=== PATIENT | male | born 1990 | race Caucasian/White ===

== ENCOUNTER 2016-11-15 09:58 | Emergency (ER) | payer MEDICAID ==
[2016-11-15 10:03] VITALS: BP 155/91; PULSE 92; RESP 16; TEMP 98.1; O2SAT 98
--- NOTE | 2016-11-15 11:22 | EDPHY ---
H & P Time Seen by Provider: 11/15/16 10:52 HPI/ROS: CHIEF COMPLAINT: The possible infection on facial piercing HISTORY OF PRESENT ILLNESS: Patient is a 26-year-old male who presents emergency department with some redness surrounding the left facial piercing. Patient has mild discomfort at the location. Mild redness. No fevers or chills. No recent trauma to that location. No visual change. No eye pain. REVIEW OF SYSTEMS: My complete review of systems is negative except as mentioned in the HPI. Past Medical/Surgical History: Reports chronic pain. No other medical problems Smoking Status: Current every day smoker Physical Exam: Vitals noted General Appearance: Alert and no distress. Head/faace: Patient has a piercing/plug just lateral to the left lateral canthus. There is minimal surrounding erythema. There is no fluctuance. His eye appears normal. No proptosis. PERRLA. Respiratory: No respiratory distress. Cardiac: regular rate and rhythm. Extremities: Full range of motion, normal appearing. Skin: No rashes or lesions. Neuro: Alert. Normal mood and affect. Constitutional: Initial Vital Signs Temperature (C) 36.7 C 11/15/16 10:00 Heart Rate 92 11/15/16 10:00 Respiratory Rate 16 11/15/16 10:00 Blood Pressure 155/91 H 11/15/16 10:00 O2 Sat (%) 98 11/15/16 10:00 O2 Delivery Mode Room Air Allergies/Adverse Reactions: No Known Allergies Allergy (Unverified 11/15/16 10:03) Home Medications: Medication Instructions Recorded GABAPENTIN 400 mg PO 11/15/16 Medical Decision Making ED Course/Re-evaluation: In the emergency department I discussed possible etiologies with the patient. I discussed the need to have his piercing removed. He would prefer to do this at the location where he had the piercing placed. I discussed the potential for follow-up with Dr. Woods from surgery. I discussed the plan for treatment with Keflex. He agreed with the plan. I went to recheck on the patient prior to discharge. He left the room. The patient stated he did not want to wait for his discharge paperwork or his prescription. Differential Diagnosis: My differential includes but is not limited to foreign body, abscess, cellulitis , inflammation, orbital infection Departure - Departure Disposition: Home, Routine, Self-Care Clinical Impression: Piercing Cellulitis Qualifiers: Site of cellulitis: face Qualified Code(s): L03.211 - Cellulitis of face Condition: Good Instructions: Cellulitis (ED) Referrals: NONE *PRIMARY CARE P,. [Primary Care Provider] - As per Instructions
== END 2016-11-15 11:00 | disposition home or self-care (01) ==
DX: S00.85XA Superficial foreign body of other part of head, initial encounter (principal); L03.211 Cellulitis of face; F17.200 Nicotine dependence, unspecified, uncomplicated; W45.8XXA Other foreign body or object entering through skin, initial encounter

== ENCOUNTER 2018-07-31 18:21 | Emergency (ER) | payer MEDICAID ==
--- NOTE | 2018-07-31 18:50 | EDPHY ---
H & P Stated Complaint: shaking, n/v Time Seen by Provider: 07/31/18 18:32 HPI/ROS: CHIEF COMPLAINT: Vomiting HISTORY OF PRESENT ILLNESS: 28-year-old male history of IV drug abuse, discharged from [facility] 5 days ago for right hand pain swelling found to have a right index finger abscess and septic arthritis, started on Rocephin and discharged with Bactrim. He has not taken his Bactrim in the past 24 hr due to vomiting. States his finger is feeling significant improvement. No abdominal pain. No fever or chills. No flu-like symptoms. No headache. REVIEW OF SYSTEMS: 10 systems reviewed and negative with the exception of the elements mentioned in the history of present illness PAST MEDICAL & SURGICAL HISTORY: MRSA septic arthritis of the right index finger SOCIAL HISTORY: regular marijuana use. Intermittent alcohol abuse. IV drug abuse history sober x2 months PHYSICAL EXAM (Prior to examination, patient consented to physical exam, hands were washed and my usual and customary physical exam procedures followed) 1) GENERAL: Well-developed, well-nourished, alert and oriented. Appears nontoxic answering questions appropriately 2) HEAD: Normocephalic, atraumatic 3) HEENT: Pupils equal, round, reactive to light bilaterally. Sclera anicteric. Nasopharynx, oropharynx, clear, no lesions. Dry mucous membranes. 4) NECK: Full range of motion, no meningeal signs. 5) LUNGS: Clear auscultation bilaterally, no wheezes, no rhonchi, no retractions. 6) HEART: Regular rate and rhythm, no murmur, no heave, no gallop. 7) ABDOMEN: No guarding, no rebound, no focal tenderness, negative McBurney's, negative Bella's, negative Rovsing's, negative peritoneal sign, 8) MUSCULOSKELETAL: Right upper extremity: Dressing on the right index finger is taken down, wound appears to be granulating appropriately with negative kanavel sign, faint erythema, no pain. No pain with axial loading of the joints of the finger. No lymphangitic streaking, Otherwise, Moving all extremities, no focal areas of tenderness, no obvious trauma. No peripheral edema or discoloration. 9) BACK: No CVA tenderness, no midline vertebral tenderness, no fluctuance, no step-off, no obvious trauma, no visual or palpable abnormality. 10) SKIN: No rash, no petechiae. 11) Psychiatric: Patient is oriented X 3, there is no agitation. DIFFERENTIAL DIAGNOSIS: In no particular order including but limited to gastroenteritis, medication adverse effect, septic arthritis - Personal History Current Tetanus/Diphtheria Vaccine: Yes Current Tetanus Diphtheria and Acellular Pertussis (TDAP): Yes Tetanus Vaccine Date: 03/30/13 - Medical/Surgical History Hx Asthma: No Hx Chronic Respiratory Disease: No Hx Diabetes: No Hx Cardiac Disease: No Hx Renal Disease: No Hx Cirrhosis: No Hx Alcoholism: No Hx HIV/AIDS: No Hx Splenectomy or Spleen Trauma: No Other PMH: chronic pain, MRSA R hand, IV drug use - Social History Smoking Status: Current every day smoker Constitutional: Initial Vital Signs Temperature (C) 36.6 C 07/31/18 18:25 Heart Rate 80 07/31/18 18:25 Respiratory Rate 16 07/31/18 18:25 Blood Pressure 144/120 H 07/31/18 18:25 O2 Sat (%) 94 07/31/18 18:25 O2 Delivery Mode Room Air Allergies/Adverse Reactions: venlafaxine [From Effexor] Allergy (Verified 07/31/18 18:25) Home Medications: Medication Instructions Recorded GABAPENTIN 400 mg PO 11/15/16 Bactrim DS 07/31/18 Clonidine HCl 07/31/18 Ondansetron Odt [Zofran Odt] 4 mg PO Q4PRN PRN #10 tab 07/31/18 Oxycodone HCl 07/31/18 Valium 07/31/18 Medical Decision Making ED Course/Re-evaluation: 6:49 p.m.: I reviewed patient's old medical records. Regarding his finger this appears to be healing well with no signs of acute infection. Care of patient under supervision of secondary supervising physician Dr Babin with whom I discussed case. 7:09 p.m.: Mother, who is a nurse practitioner, requests that we add a magnesium and CRP level to his laboratory studies. This will be added 7:55 p.m.: Discussed with mother his laboratory studies including his CRP which is elevated in the 20s. She notes that when he was admitted [facility] his CRP was in the 130s. Patient had been given IV Ativan earlier which I thought would help with his anxiety and his vomiting and nausea. At this time he had gone to the bathroom and immediately upon leaving the bathroom he was highly somnolent. I inquired whether he had used any illicit substances such as heroin, while in the bathroom and he adamantly denied this. Spoke with mother at this time who states that he is more somnolent than she would expect with Ativan as he received Ativan during his last hospitalization this did not make him tired. At this time he is maintaining his airway and do not think that Narcan administration indicated however he will be observed in the ER until he is more awake. I have observed him tolerating oral intake before going back to sleep. 9:28 p.m.: Re-evaluation, sleeping, easily woken at this time. He is feeling improvement. He would like to be discharged. Plan will be discharge. - Data Points Laboratory Results: Laboratory Results 07/31/18 19:00 07/31/18 19:00 07/31/18 07/31/18 19:00 19:00 WBC 8.25 10^3/uL 10^3/uL (3.80-9.50) RBC 5.44 10^6/uL 10^6/uL (4.40-6.38) Hgb 16.5 g/dL g/dL (13.7-17.5) Hct 47.6 % % (40.0-51.0) MCV 87.5 fL fL (81.5-99.8) MCH 30.3 pg pg (27.9-34.1) MCHC 34.7 g/dL g/dL (32.4-36.7) RDW 14.8 % % (11.5-15.2) Plt Count 437 10^3/uL H 10^3/uL (150-400) MPV 9.5 fL fL (8.7-11.7) Neut % (Auto) 67.7 % % (39.3-74.2) Lymph % (Auto) 19.6 % % (15.0-45.0) Barbour % (Auto) 11.2 % % (4.5-13.0) Eos % (Auto) 0.6 % % (0.6-7.6) Baso % (Auto) 0.7 % % (0.3-1.7) Nucleat RBC Rel Count 0.0 % % (0.0-0.2) Absolute Neuts (auto) 5.58 10^3/uL 10^3/uL (1.70-6.50) Absolute Lymphs (auto) 1.62 10^3/uL 10^3/uL (1.00-3.00) Absolute Monos (auto) 0.92 10^3/uL H 10^3/uL (0.30-0.80) Absolute Eos (auto) 0.05 10^3/uL 10^3/uL (0.03-0.40) Absolute Basos (auto) 0.06 10^3/uL 10^3/uL (0.02-0.10) Absolute Nucleated RBC 0.00 10^3/uL 10^3/uL (0-0.01) Immature Gran % 0.2 % % (0.0-1.1) Immature Gran # 0.02 10^3/uL 10^3/uL (0.00-0.10) Sodium 138 mEq/L mEq/L (135-145) Potassium 4.3 mEq/L mEq/L (3.3-5.0) Chloride 99 mEq/L mEq/L (97-110) Carbon Dioxide 19 mEq/l L mEq/l (22-31) Anion Gap 20 mEq/L H mEq/L (6-14) BUN 21 mg/dL mg/dL (7-23) Creatinine 1.1 mg/dL mg/dL (0.7-1.3) Estimated GFR > 60 Glucose 128 mg/dL H mg/dL (70-100) Calcium 11.3 mg/dL H mg/dL (8.5-10.4) Phosphorus 2.5 mg/dL mg/dL (2.5-4.5) Magnesium 2.1 mg/dL mg/dL (1.6-2.3) C-Reactive Protein 27.1 mg/L H mg/L (<10.0) Medications Given: Discontinued Medications Sodium Chloride (Ns) 1,000 mls @ 0 mls/hr IV ONCE ONE PRN Reason: Wide Open Stop: 07/31/18 19:19 Last Admin: 07/31/18 19:30 Dose: 1,000 mls Lorazepam (Ativan Injection) 1 mg IVP EDNOW ONE Stop: 07/31/18 19:24 Last Admin: 07/31/18 19:31 Dose: 1 mg Ondansetron HCl (Zofran Odt) 4 mg PO EDNOW ONE Stop: 07/31/18 19:01 Last Admin: 07/31/18 19:33 Dose: Not Given Ondansetron HCl (Zofran) 4 mg IVP EDNOW ONE Stop: 07/31/18 19:24 Last Admin: 07/31/18 19:31 Dose: 4 mg Departure - Departure Disposition: Home, Routine, Self-Care Clinical Impression: Nausea Condition: Good Instructions: Acute Nausea and Vomiting (ED) Additional Instructions: Do not use illegal drugs. Take your anti vomiting medication as directed. Return to the ER if you are unable to keep food or fluid down or any other symptoms that concern you. Referrals: [facility],. [Clinic] - As per Instructions Prescriptions: Ondansetron Odt [Zofran Odt] 4 mg PO Q4PRN PRN #10 tab PRN Reason: Nausea
[2018-07-31] MEDS ORDERED: ONDANSETRON DISINTEGRATING 4 MG TAB PO ONE (19:00)
[2018-07-31 19:14] LABS: PLATELET COUNT 437 10^3/uL (150-400)
[2018-07-31] MEDS ORDERED: NS 1,000 ML IV ONE (19:18)
[2018-07-31] MEDS ORDERED: ONDANSETRON 4 MG/2 ML VIAL ONE (19:22)
[2018-07-31] MEDS ORDERED: ONDANSETRON 4 MG/2 ML VIAL IVP ONE (19:23)
[2018-07-31] MEDS ORDERED: LORazepam 2 MG/ML INJ IVP ONE (19:23)
[2018-07-31] MEDS ORDERED: SULFAMETHOX/TMP 800/160 MG 1 TAB PO ONE (20:07)
[2018-07-31 21:49] VITALS: BP 138/99
== END 2018-07-31 21:54 | disposition home or self-care (01) ==
DX: R11.2 Nausea with vomiting, unspecified (principal)
CPT/HCPCS: 96374; J2060; J2405